=== PATIENT | male | born 1995 | race African-American/Black ===

== ENCOUNTER 2018-11-19 16:13 | Emergency (ER) | payer OTHER ==
[~2018-11-19] VITALS: Ht 180.3 cm; Wt 66.8 kg
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
[2018-11-19 19:57] VITALS: BP 136/82
== END 2018-11-19 19:58 | disposition home or self-care (01) ==
LOC: M ED 16:13
DX: S16.1XXA Strain of muscle, fascia and tendon at neck level, initial encounter (principal); V49.9XXA Car occupant (driver) (passenger) injured in unspecified traffic accident, initial encounter; Y92.481 Parking lot as the place of occurrence of the external cause